=== PATIENT | male | born 1955 | race Hispanic/Latino ===

== ENCOUNTER 2018-09-11 13:17 | Inpatient (IN) | payer OTHER ==
[~2018-09-11] VITALS: Ht 167.6 cm; Wt 83.6 kg
[~2018-09-11 13:17] MED LIST: ASPI-555 PO; ATOR40TA69 PO; CARV3.12 PO; LANS30CA53 PO; LOSA100T58 PO; NITR0.4T SL; OMEP40CA37 PO
[2018-09-11 13:52] LABS: BASOPHILS % (AUTO) 0.5 % (0.0-5.0); EOSINOPHILS % (AUTO) 1.2 % (0.0-8.0); HEMATOCRIT 45.5 % (42-54); LYMPHOCYTES % (AUTO) 21.7 % (21.0-51.0); MEAN CORPUSCULAR HEMOGLOBIN 30.1 pg (27.0-33.0); MEAN CORPUSCULAR HGB CONC 33.7 g/dL (32.0-36.0); MEAN CORPUSCULAR VOLUME 89.4 fL (79-99); MONOCYTES % (AUTO) 5.3 % (3.0-13.0); NEUTROPHILS % (AUTO) 71.3 % (40.0-77.0); PLATELET COUNT (AUTO) 205 K/uL (130-400); RED BLOOD CELL COUNT(AUTO) 5.09 MIL/uL (4.50-6.20); RED CELL DISTRIBUTION WIDTH 13.5 % (11.0-15.5); WHITE BLOOD COUNT (AUTO) 6.5 K/uL (4.8-10.8)
[2018-09-11 13:56] LABS: CREATININE 0.9 mg/dL (0.5-1.5); POTASSIUM 3.8 mmol/L (3.5-5.1)
[2018-09-11 14:01] LABS: BILIRUBIN,TOTAL 0.4 mg/dL (0.2-1.0); TOTAL PROTEIN, SERUM 7.4 g/dL (6.0-8.3)
[2018-09-11] MEDS ORDERED: NITROGLYCERIN 1GM/1 INCH PACKET TD ONE (14:47)
[2018-09-11] MEDS ORDERED: ASPIRIN 81MG TAB.CHEW ONE (14:47)
[2018-09-11] MEDS ORDERED: METOPROLOL TARTRATE 25 MG TAB ONE (20:29)
[2018-09-11] MEDS ORDERED: ENOXAPARIN SODIUM 40 MG/0.4 ML SYRINGE SQ ONE (20:29)
[2018-09-12 05:57] LABS: CREATININE 0.9 mg/dL (0.5-1.5); POTASSIUM 3.6 mmol/L (3.5-5.1)
[2018-09-12 06:02] LABS: CREATINE KINASE, TOTAL 50 U/L (21-232); MYOGLOBIN 27 ng/mL (10-92); TROPONIN I < 0.04 ng/mL (0.00-0.06)
[2018-09-12 06:08] LABS: BASOPHILS % (AUTO) 0.6 % (0.0-5.0); EOSINOPHILS % (AUTO) 3.4 % (0.0-8.0); HEMATOCRIT 43.4 % (42-54); LYMPHOCYTES % (AUTO) 37.5 % (21.0-51.0); MEAN CORPUSCULAR HGB CONC 33.4 g/dL (32.0-36.0); MEAN CORPUSCULAR VOLUME 89.8 fL (79-99); MONOCYTES % (AUTO) 6.8 % (3.0-13.0); NEUTROPHILS % (AUTO) 51.7 % (40.0-77.0); PLATELET COUNT (AUTO) 169 K/uL (130-400); RED BLOOD CELL COUNT(AUTO) 4.83 MIL/uL (4.50-6.20); RED CELL DISTRIBUTION WIDTH 13.5 % (11.0-15.5)
[2018-09-12] MEDS ORDERED: ENOXAPARIN SODIUM 40 MG/0.4 ML SYRINGE SQ ONE (10:49)
[2018-09-12] MEDS ORDERED: ASPIRIN 81MG TAB.CHEW ONE (10:49)
[2018-09-12] MEDS ORDERED: METOPROLOL TARTRATE 50 MG TAB ONE (10:49)
[2018-09-12 16:31] LABS: CREATINE KINASE, TOTAL 47 U/L (21-232); MYOGLOBIN 28 ng/mL (10-92); TROPONIN I < 0.04 ng/mL (0.00-0.06)
--- NOTE | 2018-09-13 00:15 | NUR ---
ASSESSMENT PATIENT TRANSFERRED FROM [facility]. DX: ANGINA. PATIENT DENIES CHEST PAIN AND SHORTNESS OF BREATH AT THIS TIME. ON ROOM AIR. RESPIRATIONS UNLABORED. SINUS BRADYCARDIA HR 50. SEE DOCUMENTATION FOR FULL ASSESSMENT. CALL LIGHT WITHIN REACH. INSTRUCTED PATIENT TO CALL IF ASSISTANCE IS NEEDED.
[2018-09-13 00:17] VITALS: BP 127/75
[2018-09-13] MEDS ORDERED: LOSA50TA64 PO (00:57)
[2018-09-13 01:21] LABS: CREATINE KINASE, TOTAL 103 U/L (21-232); MYOGLOBIN 22 ng/mL (10-92); TROPONIN I < 0.04 ng/mL (0.00-0.06)
[2018-09-13] MEDS ORDERED: MORPHINE SULFATE 2 MG/ML 1ML SYG IVP PRN (01:30)
[2018-09-13] MEDS ORDERED: ONDANSETRON HCL MDV 20ML 2 MG/ML VIAL IVP PRN (01:30)
[2018-09-13] MEDS ORDERED: NITROGLYCERIN 0.4 MG SL TAB SL PRN (01:30)
[2018-09-13 04:08] VITALS: BP 129/75
[2018-09-13 04:37] LABS: HEMATOCRIT 42.5 % (42-54); MEAN CORPUSCULAR HEMOGLOBIN 30.2 pg (27.0-33.0); MEAN CORPUSCULAR HGB CONC 33.5 g/dL (32.0-36.0); MEAN CORPUSCULAR VOLUME 90.1 fL (79-99); PLATELET COUNT (AUTO) 175 K/uL (130-400); RED BLOOD CELL COUNT(AUTO) 4.71 MIL/uL (4.50-6.20); RED CELL DISTRIBUTION WIDTH 13.6 % (11.0-15.5); WHITE BLOOD COUNT (AUTO) 7.2 K/uL (4.8-10.8)
[2018-09-13 05:03] LABS: MAGNESIUM 1.9 mg/dL (1.80-2.40); POTASSIUM 3.8 mmol/L (3.5-5.1)
[2018-09-13 07:38] VITALS: BP 121/72
--- NOTE | 2018-09-13 08:48 | NUR ---
DC Plan Discussed dcp w/ patient and , Kelsey at bedside. Lives w/ spouse. Denies any HH, provider, or DME. Independent ADLs. States feels safe returning home upon discharge. DCP to home w/ . CD Addendum: 09/13/18 at 0849 by LOUANN BURK CM Amended: Links added.
[2018-09-13] MEDS ORDERED: ENOXAPARIN SODIUM 40 MG/0.4 ML SYRINGE SQ SCH (09:00)
[2018-09-13] MEDS ORDERED: METOPROLOL TARTRATE 50 MG TAB PO SCH (09:00)
[2018-09-13] MEDS ORDERED: ASPIRIN 81 MG EC TAB PO SCH (09:00)
[2018-09-13 11:09] VITALS: BP 131/78
[2018-09-13 15:22] VITALS: BP 127/70
== END 2018-09-13 17:00 | disposition home or self-care (01) | DRG 303 ==
LOC: EDH 13:17 → EDHIP 13:18 → 2AH 09-12 23:34
PROVIDERS: ADMIT Internal Medicine Infectious Disease; ATTEND Internal Medicine Infectious Disease
DX: I25.119 Atherosclerotic heart disease of native coronary artery with unspecified angina pectoris (principal); I10 Essential (primary) hypertension; F17.200 Nicotine dependence, unspecified, uncomplicated; E78.5 Hyperlipidemia, unspecified; I25.2 Old myocardial infarction; Z98.61 Coronary angioplasty status; Z91.19 Patient's noncompliance with other medical treatment and regimen; Z82.49 Family history of ischemic heart disease and other diseases of the circulatory system
CPT/HCPCS: 36415; 71045; 80048; 80053; 80061; 82550; 83735; 83874; 84484; 85025; 85027; 93005; G0378; J1650

== ENCOUNTER → 2021-05-23 | Outpatient (CLI) | payer OTHER ==
[~2021-05-23] MED LIST changes: -ASPI-555 PO; +ASPI-556 PO; -LOSA100T58 PO; +LOSA50TA64 PO; +OMEP40CA21 PO; -OMEP40CA37 PO
== END | disposition home or self-care (01) ==
LOC: SHCH 15:08
PROVIDERS: ATTEND Internal Medicine Cardiovascular Disease
DX: I35.8 Other nonrheumatic aortic valve disorders (principal); E78.5 Hyperlipidemia, unspecified; R55 Syncope and collapse
CPT/HCPCS: 93306; 93356

== ENCOUNTER 2022-07-29 12:39 | Emergency (ER) | payer OTHER ==
[~2022-07-29] VITALS: Ht 167.6 cm; Wt 87.1 kg
[2022-07-29 14:31] LABS: BASOPHILS % (AUTO) 0.5 % (0.0-5.0); EOSINOPHILS % (AUTO) 0.4 % (0.0-8.0); HEMATOCRIT 48.1 % (42-54); LYMPHOCYTES % (AUTO) 20.1 % (21.0-51.0); MEAN CORPUSCULAR HEMOGLOBIN 29.4 pg (27.0-33.0); MEAN CORPUSCULAR HGB CONC 32.4 g/dL (32.0-36.0); MEAN CORPUSCULAR VOLUME 90.8 fL (79-99); MONOCYTES % (AUTO) 4.9 % (3.0-13.0); PLATELET COUNT (AUTO) 202 K/uL (130-400); RED CELL DISTRIBUTION WIDTH 12.3 % (11.0-15.5); WHITE BLOOD COUNT (AUTO) 7.9 K/uL (4.8-10.8)
[2022-07-29 14:47] LABS: CREATININE 0.9 mg/dL (0.5-1.5); POTASSIUM 4.5 mmol/L (3.5-5.1)
[2022-07-29 15:03] LABS: TOTAL PROTEIN, SERUM 7.5 g/dL (6.0-8.3)
[2022-07-29 17:02] LABS: APPEARANCE,URINE CLEAR (CLEAR); BILIRUBIN,URINE NEGATIVE (NEGATIVE); COLOR,URINE LIGHT-YELLOW (YELLOW); GLUCOSE, URINE (UA) NEGATIVE (NEGATIVE); KETONES,URINE NEGATIVE (NEGATIVE); LEUKOCYTE ESTERASE ,URINE NEGATIVE Leu/uL (NEGATIVE); NITRATE,URINE NEGATIVE (NEGATIVE); OCCULT BLOOD,URINE SMALL (NEGATIVE); PH,URINE 5.5 (5.0-8.0); PROTEIN,URINE NEGATIVE (NEGATIVE); UROBILINOGEN,URINE 0.2 mg/dL (0.2-1.0)
[2022-07-29 17:13] LABS: MUCUS,URINE RARE LPF (None Seen)
[2022-07-29] MEDS ORDERED: PANTOPRAZOLE 40 MG/VIAL IVP ONE (17:30)
[2022-07-29] MEDS ORDERED: PANTOPRAZOLE 40 MG/VIAL ONE (17:38)
[2022-07-29 18:13] VITALS: BP 144/75
[2022-07-29] MEDS ORDERED: OMEP40CA21 PO (18:57)
== END 2022-07-29 19:20 | disposition home or self-care (01) ==
LOC: EDH 12:39
DX: K21.9 Gastro-esophageal reflux disease without esophagitis (principal); R07.89 Other chest pain; E11.9 Type 2 diabetes mellitus without complications; E78.00 Pure hypercholesterolemia, unspecified; I10 Essential (primary) hypertension; Z79.82 Long term (current) use of aspirin; Z79.899 Other long term (current) drug therapy; Z88.2 Allergy status to sulfonamides; Z95.5 Presence of coronary angioplasty implant and graft; Z98.890 Other specified postprocedural states
CPT/HCPCS: 99285; 84484 ×2; 80053; 85025; 81001; 36415; 71045; 96374; 93005 ×2; C9113

== ENCOUNTER 2022-08-19 13:53 | Emergency (ER) | payer OTHER ==
[~2022-08-19] VITALS: Ht 167.6 cm; Wt 86.2 kg
[2022-08-19 14:37] LABS: BASOPHILS % (AUTO) 0.5 % (0.0-5.0); EOSINOPHILS % (AUTO) 1.1 % (0.0-8.0); HEMATOCRIT 44.9 % (42-54); MEAN CORPUSCULAR HEMOGLOBIN 29.7 pg (27.0-33.0); MEAN CORPUSCULAR HGB CONC 33.9 g/dL (32.0-36.0); MEAN CORPUSCULAR VOLUME 87.7 fL (79-99); MONOCYTES % (AUTO) 6.6 % (3.0-13.0); NEUTROPHILS % (AUTO) 62.6 % (40.0-77.0); PLATELET COUNT (AUTO) 197 K/uL (130-400); RED BLOOD CELL COUNT(AUTO) 5.12 MIL/uL (4.50-6.20); RED CELL DISTRIBUTION WIDTH 12.3 % (11.0-15.5); WHITE BLOOD COUNT (AUTO) 6.5 K/uL (4.8-10.8)
[2022-08-19 14:43] LABS: APPEARANCE,URINE CLEAR (CLEAR); BILIRUBIN,URINE NEGATIVE (NEGATIVE); COLOR,URINE LIGHT-YELLOW (YELLOW); GLUCOSE, URINE (UA) NEGATIVE (NEGATIVE); KETONES,URINE NEGATIVE (NEGATIVE); LEUKOCYTE ESTERASE ,URINE NEGATIVE Leu/uL (NEGATIVE); NITRATE,URINE NEGATIVE (NEGATIVE); OCCULT BLOOD,URINE SMALL (NEGATIVE); PROTEIN,URINE NEGATIVE (NEGATIVE); UROBILINOGEN,URINE 0.2 mg/dL (0.2-1.0)
[2022-08-19 14:44] LABS: CREATININE 0.9 mg/dL (0.5-1.5); POTASSIUM 3.9 mmol/L (3.5-5.1)
[2022-08-19 14:48] LABS: TOTAL PROTEIN, SERUM 7.5 g/dL (6.0-8.3)
[2022-08-19 15:44] LABS: WBC,URINE 0-1 /HPF (0-1)
[2022-08-19] MEDS: ASPIRIN 325MG TAB PO ONE (16:16)
[2022-08-19] MEDS: HYDROCODONE/ACETAMINOPHEN 5/325 MG TAB PO ONE (16:16)
[2022-08-19] MEDS: NITROGLYCERIN 1GM OINT 1 INCH/1GM TD ONE (16:16)
[2022-08-19 17:52] VITALS: BP 115/67
== END 2022-08-19 18:16 | disposition home or self-care (01) ==
LOC: EDH 13:53
DX: R07.89 Other chest pain (principal); I25.10 Atherosclerotic heart disease of native coronary artery without angina pectoris; I11.9 Hypertensive heart disease without heart failure; I25.2 Old myocardial infarction; E11.9 Type 2 diabetes mellitus without complications; E78.00 Pure hypercholesterolemia, unspecified; Z79.82 Long term (current) use of aspirin; Z79.899 Other long term (current) drug therapy; Z88.2 Allergy status to sulfonamides
CPT/HCPCS: 36415; 71045; 80053; 81001; 82550; 83735; 83880; 84484; 85025; 85378; 93005

== ENCOUNTER → 2022-09-15 | Outpatient (CLI) | payer OTHER ==
[~2022-09-15] MED LIST changes: +REGADENOSON 0.4 MG/5 ML PF SYG IVP SCH
== END | disposition home or self-care (01) ==
LOC: SHCH 08:18
PROVIDERS: ATTEND Internal Medicine Cardiovascular Disease
DX: R07.9 Chest pain, unspecified (principal); I25.10 Atherosclerotic heart disease of native coronary artery without angina pectoris; Z79.899 Other long term (current) drug therapy
CPT/HCPCS: 78452; 96374; 93017; J2785; A9500 ×2